=== PATIENT | female | born 1985 | race Caucasian/White ===

== ENCOUNTER 2021-07-24 07:01 | Observation (INO) | payer OTHER ==
[2021-07-24] VITALS (7 sets, daily range): BP systolic 97–128; BP diastolic 57–69
[~2021-07-24] VITALS: Ht 177.8 cm; Wt 104.0 kg
[~2021-07-24 07:01] MED LIST: CART1TAB4 PO; CHOL5000 PO; CYCL1DRO OP; HYDROmorphone 2 MG/ML VIAL IVP PRN; LACT1CAP6 PO; MULT-246 PO; PROCHLORPERAZINE 10 MG/2 ML VIAL. IVP PRN; TRAZ-118 PO; VENL150C PO; fentaNYL PF VIAL 100 MCG/2 ML VIAL IVP PRN
[2021-07-24] MEDS: IV RINGERS,LACTATED 1000ML 1,000 ML IV SCH ×2 (07:46→10:29)
[2021-07-24] MEDS ORDERED: SCOPOLAMINE 1.5MG PATCH. TD ONE (08:00)
[2021-07-24] MEDS ORDERED: MIDAZOLAM HCL/PF 2 MG/2 ML VIAL. ONE (08:13)
[2021-07-24] MEDS ORDERED: fentaNYL PF VIAL 250 MCG/5 ML VIAL ONE (08:13)
[2021-07-24] MEDS ORDERED: ONDANSETRON PF 4 MG/2 ML VIAL. ONE (08:14)
[2021-07-24] MEDS ORDERED: ROCURONIUM 50 MG/5 ML VIAL. ONE (08:14)
[2021-07-24] MEDS ORDERED: PROPOFOL 10 MG/ML (20ML) VIAL. IV ONE (08:14)
[2021-07-24] MEDS ORDERED: LIDOCAINE 2% PF 5 ML VIAL. ONE (08:14)
[2021-07-24 08:30] LABS: BASO % 1 % (0-3); EOS % 1 % (0-3); HEMATOCRIT 39.4 % (36.0-47.0); LYMPH # 2.3 x10^3/uL (1.0-4.8); LYMPH % 39 % (24-48); MEAN CORPUSCULAR HEMOGLOBIN 27 pg (25-35); MEAN CORPUSCULAR HGB CONC 33 g/dL (31-37); MEAN CORPUSCULAR VOLUME 83 fL (79-100); MONO # 0.5 x10^3/uL (0.0-1.1); MONO % 9 % (0-9); NEUT # 2.9 x10^3/uL (1.8-7.7); NEUT % 51 % (31-73); PLATELET COUNT 182 x10^3/uL (140-400); RED BLOOD COUNT 4.77 x10^6/uL (3.50-5.40); RED CELL DISTRIBUTION WIDTH 14.3 % (11.5-14.5); WHITE BLOOD COUNT 5.8 x10^3/uL (4.0-11.0)
[2021-07-24] MEDS ORDERED: LIDOCAINE 1%/EPI 1:100,000 20 ML VIAL. ONE (08:36)
[2021-07-24] MEDS ORDERED: INDIGOTINDISULFONATE SODIUM 40 MG/5 ML AMPUL. ONE (08:36)
[2021-07-24] MEDS ORDERED: PROPOFOL 200 ML IV ONE (08:37)
[2021-07-24] MEDS ORDERED: ePHEDrine PF IN SALINE 50 MG/10 ML SYRINGE. IV ONE (09:36)
[2021-07-24] MEDS ORDERED: GLYCOPYRROLATE 1 MG/5 ML VIAL. ONE (09:43)
[2021-07-24] MEDS ORDERED: NEOSTIGMINE METHYLSULFATE 5 MG/5 ML SYRINGE. ONE (09:43)
--- NOTE | 2021-07-24 09:58 | PDOC ---
BRIEF OPERATIVE NOTE Date: Jul 24, 2021 Pre-Op Diagnosis 1. Menorrhagia 2. Dysmenorrhea Post-Op Diagnosis Same Procedure Performed [facility] Surgeon Dr. Cooper Differential Specialist Elevated Guard: Krystian Anesthesia Type: General Blood Loss 70 ml Specimens Obtained cervix and uterus Findings enlarged uterus, nml ovaries tran. Complications none Operative Note see dictation ROSMERY COOPER Jr, MD Jul 24, 2021 09:58
[2021-07-24] MEDS ORDERED: PROCHLORPERAZINE 10 MG/2 ML VIAL. IV PRN (10:00)
[2021-07-24] MEDS ORDERED: ZOLPIDEM 5 MG TABLET. PO PRN (10:00)
[2021-07-24] MEDS ORDERED: CALCIUM CARBONATE 500 MG TAB.CHEW PO PRN (10:00)
[2021-07-24] MEDS ORDERED: diphenhydrAMINE HCL 25 MG CAPSULE PO PRN (10:00)
[2021-07-24] MEDS ORDERED: DEXTROSE 50% 25 GM / 50ML DISP.SYRIN. IV PRN (10:00)
[2021-07-24] MEDS ORDERED: SIMETHICONE 80 MG TAB.CHEW PO PRN (10:00)
[2021-07-24] MEDS ORDERED: ONDANSETRON PF 4 MG/2 ML VIAL. IV PRN (10:00)
[2021-07-24] MEDS ORDERED: 0.9 % SODIUM CHLORIDE 10 ML DISP.SYRIN. IV PRN (10:00)
[2021-07-24] MEDS ORDERED: diphenhydrAMINE 50 MG/ML VIAL IV PRN (10:00)
[2021-07-24] MEDS ORDERED: DOCU-109 PO (10:04)
[2021-07-24] MEDS ORDERED: GABA300C18 PO (10:04)
[2021-07-24] MEDS ORDERED: IBUP-1027 PO (10:04)
--- NOTE | 2021-07-24 10:05 | DISCH ---
DISCHARGE INSTRUCTIONS Condition on Discharge Condition on Discharge: Stable Activity After Discharge Activity Instructions for Disc: Activity as tolerated Lifting Instructions after Dis: No heavy lifting Driving Instructions after Dis: No driving for 2 weeks Diet after Discharge Diet after Discharge: Regular Contacting the DRAisha after DC Call your doctor for: Concerns you may have Follow-Up Follow up with: Dr. Lewis in 2 wks ROSMERY LEWIS Jr, MD Jul 24, 2021 10:05
[2021-07-24] MEDS ORDERED: PROCHLORPERAZINE 10 MG/2 ML VIAL. ONE (10:13)
[2021-07-24] MEDS ORDERED: fentaNYL PF VIAL 100 MCG/2 ML VIAL ONE (10:16)
[2021-07-24] MEDS ORDERED: MORPHINE SULFATE 2 MG/ML INJ. ONE ×2 (10:17→11:08)
[2021-07-24] MEDS: fentaNYL PF VIAL 100 MCG/2 ML VIAL IVP PRN ×2 (10:30→10:39)
[2021-07-24] MEDS: MORPHINE SULFATE 2 MG/ML INJ. IVP PRN ×4 (10:31→11:12)
[2021-07-24] MEDS: KETOROLAC 30 MG/ML VIAL. IV PRN ×3 (10:41→23:33)
--- NOTE | 2021-07-24 11:01 | OP ---
DATE OF SURGERY: 07/24/2021 PREOPERATIVE DIAGNOSES: 1. Menorrhagia. 2. Dysmenorrhea. POSTOPERATIVE DIAGNOSES: 1. Menorrhagia. 2. Dysmenorrhea. PROCEDURE: [facility]. SURGEON: Donal Cooper MD WEB MERCHANDISER: Krystian. ANESTHESIA: GETA. ESTIMATED BLOOD LOSS: 70 mL. COMPLICATIONS: None. FINDINGS: Enlarged uterus, normal ovaries bilaterally. SUMMARY: A 35-year-old with long history of menorrhagia and dysmenorrhea, requiring hysterectomy. She was counseled on the risks, benefits and expectations and voiced a clear understanding to proceed. DESCRIPTION OF PROCEDURE: The patient was taken to surgery suite and placed in dorsal lithotomy position. She was prepped with Dial soap due to the IODINE ALLERGY and draped in sterile fashion. After adequate anesthesia, weighted speculum and curved Lucy were placed vaginally. Anterior lip and posterior lip were grasped with Kush clamps. A 1% lidocaine with epinephrine was injected in a circumferential manner. Bovie cautery was utilized to circumscribe the cervix. The vaginal mucosa was dissected away from the lower uterine segment using blunt dissection. The parametrial tissue was clamped bilaterally with curved Tristan clamps, cut and suture ligated with 2-0 Vicryl suture. Posterior cul-de-sac was entered sharply with curved Gayle scissors. Long weighted speculum was placed. Uterosacral ligaments were clamped bilaterally, cut, and suture ligated. Cardinal ligaments were clamped bilaterally, cut and suture ligated. Uterus was then retroverted. A wedge section was removed from the uterus using a long-blade scalpel. The left uteroovarian pedicle was then clamped, cut, and suture ligated. Similarly, the right adnexa was done in a similar fashion. Cervix and uterus were then removed. The ovaries were visualized. The fallopian tubes did not appear to be present on either side. Ovaries appeared normal bilaterally. The pedicles were all hemostatic. A modified Barron's culdoplasty was performed incorporating the uterosacral ligaments bilaterally. The remainder of the vaginal cuff was reapproximated using 2-0 Vicryl suture in [id number] manner. Moist vaginal packing was placed. Gonsalez catheter was placed, which elicited a clear yellow urine. The patient tolerated the procedure well and was taken to recovery room in stable condition. Sponge and needle count correct x 3. DGP/AJK/ALICE DR: Doni TID: [id number]
[2021-07-24] MEDS: GABAPENTIN 300 MG CAPSULE. PO SCH ×2 (15:40→22:04)
[2021-07-24] MEDS ORDERED: OPIUM/BELLADONNA 30/16.2MG SUPP.RECT. PR PRN (16:00)
[2021-07-25] MEDS: GABAPENTIN 300 MG CAPSULE. PO SCH (05:53)
[2021-07-25] MEDS: KETOROLAC 30 MG/ML VIAL. IV PRN (05:57)
[2021-07-25 05:58] VITALS: BP 118/41
[2021-07-25 07:41] LABS: BASO % 0 % (0-3); EOS % 0 % (0-3); HEMATOCRIT 35.5 % (36.0-47.0); HEMOGLOBIN 11.6 g/dL (12.0-15.5); LYMPH % 16 % (24-48); MEAN CORPUSCULAR HEMOGLOBIN 27 pg (25-35); MEAN CORPUSCULAR HGB CONC 33 g/dL (31-37); MEAN CORPUSCULAR VOLUME 83 fL (79-100); MONO # 0.8 x10^3/uL (0.0-1.1); MONO % 7 % (0-9); NEUT # 9.4 x10^3/uL (1.8-7.7); NEUT % 77 % (31-73); PLATELET COUNT 187 x10^3/uL (140-400); RED BLOOD COUNT 4.27 x10^6/uL (3.50-5.40); WHITE BLOOD COUNT 12.3 x10^3/uL (4.0-11.0)
[2021-07-25] MEDS ORDERED: IBUPROFEN 400 MG TABLET. PO PRN (10:00)
[2021-07-25 10:18] VITALS: BP 114/58
[2021-07-25] MEDS ORDERED: FLU VACC QUAD 21-22 (6MOS+) PF 0.5 ML SYRINGE. VAX IM ONE (10:30)
[2021-07-25 12:50] VITALS: BP 114/54
--- NOTE | 2021-07-25 14:25 | NUR ---
Discharge Note: BRENNAN TORRES Discharge instructions and discharge home medications reviewed with Patient and a copy given. All questions have been answered and understanding verbalized. The following instructions and handouts were given: Hysterectomy, Care After, Tuyp-yk-Qmge Docusate Gabapentin Ibuprofen Patient discharged to home with self-care via ambulation to private vehicle.
--- NOTE | 2021-07-28 18:06 | PATHOLOGY ---
[facility] Accession Number: [id number] . 01 Material submitted: . uterus - CERVIX AND UTERUS . 01 Clinical history: . MENORRHAGIA, DYSMENORRHEA TRANS VAG HYSTERECTOMY . 02 Diagnosis: Uterus, transvaginal hysterectomy: - Adenomyosis, uterine corpus, subbasal, focal, with mild myometrial hypertrophy (uterine weight 135 gm). - Mild papillary chronic endocervicitis. - Proliferative endometrium. (JPM:[facility]; 07/28/2021) [facility] 07/28/2021 1728 Local . 02 Comment: There is no atypia or evidence of malignancy. (JPM:[facility]; 07/28/2021) . 02 Electronically signed: . Shahriar Lenz MD, Pathologist NPI- [id number] . 01 Gross description: . The specimen is received in formalin, labeled "Rebeca Huntley, cervix and uterus". Received is a uterus with attached cervix, received with the fundus previously detached, measuring 10.5 x 7.5 x 4.8 cm upon reconstruction, and having an aggregate weight of 135 g. The serosal surface is pink-huaser and smooth in appearance. The 0.8 cm cervical os is surrounded by pink-hauser, smooth ectocervical mucosa. The specimen is oriented using the reflection and the anterior paracervical area is inked black. The specimen is opened laterally to reveal a pale hauser, slightly corrugated endocervical canal measuring 3.0 cm in length. The endometrial cavity is triangular measuring 5.2 cm in length by 3.0 cm in width. The endometrium is pink-hauser to slightly hemorrhagic in appearance and measures 0.1 cm in thickness. Serial sectioning reveals a hauser-pink, trabeculated myometrium measuring up to 2.2 cm in thickness with no grossly distinct nodules or lesions. The specimen is submitted representatively as follows: . A1 12:00 cervix A2 6:00 cervix A3 anterior endomyometrium A4 posterior endomyometrium. ([facility]; 07/25/2021) QA/QA 07/28/2021 1624 Local . 02 Pathologist provided ICD-10: N80.0, N72 . 02 CPT . 356829 Specimen Comment: A courtesy copy of this report has been sent to [phone], [phone] Specimen Comment: [id number] Specimen Comment: Report sent to / DR CANCHOLA Specimen Comment: A duplicate report has been generated due to demographic updates. Performed at: 01 [facility] [address] [facility] [address], [place] [id number] MD Harris Patterson MD Phone: [phone] Performed at: 02 [facility] [address] [place], [place] [id number] MD Shahriar Lenz MD Phone: [phone]
== END 2021-07-25 13:00 | disposition home or self-care (01) ==
LOC: SURG 07:01 → 3 NORTH 09:58
PROVIDERS: ADMIT Obstetrics & Gynecology; ATTEND Obstetrics & Gynecology
DX: N92.0 Excessive and frequent menstruation with regular cycle (principal); N94.6 Dysmenorrhea, unspecified; N85.2 Hypertrophy of uterus; Z91.041 Radiographic dye allergy status; Z23 Encounter for immunization
CPT/HCPCS: 36415; 58260; 81025; 85025; 86850; 86900; 86901; 88307; 90471; 90686; 96374; 96376; A4314; A4344; A4930; G0378; G0379; J0690; J0780; J1885; J2250; J2270; J2405; J2704; J2710; J3010; J3490

== ENCOUNTER → 2021-08-08 | Outpatient (CLI) | payer OTHER ==
[2021-07-25 12:50] VITALS: BP 114/54
[~2021-08-08] MED LIST changes: +DOCU-109 PO; +GABA300C18 PO; -HYDROmorphone 2 MG/ML VIAL IVP PRN; +IBUP-1027 PO; -PROCHLORPERAZINE 10 MG/2 ML VIAL. IVP PRN; -fentaNYL PF VIAL 100 MCG/2 ML VIAL IVP PRN
--- NOTE | 2021-08-08 15:30 | KCIC ---
MR CERVICAL SPINE WO DATE: 08/08/2021 12:35 PM INDICATION: CERVICOGENIC HEADACHE/NECK PAIN, RADICUOLPATHY, CHRONIC LOW BACK PAIN. Chronic neck pain and marie's. Tightness in trapezius. TECHNIQUE: Multiplanar multisequence magnetic resonance imaging of the cervical spine was performed w ithout administration of intravenous contrast using the standard cervical spine protocol. COMPARISON: None. FINDINGS: The cervical spine is normally aligned. No acute fracture. Mild multilevel degenerative disc desicca tion and disc height loss. Bone marrow signal intensity is normal. The spinal cord is normal in signal intensity. On the limited views of the cranial cavity and brain, the cerebellum and keegan have normal morphology and signal characteristics. No Chiari malformation. No soft tissue abnormality. Normal signal voids are present in the vertebral arteries. No significant spinal canal stenosis or neural foraminal narrowing. IMPRESSION: Mild cervical spondylosis. No significant spinal canal stenosis or neural foraminal narrowing.. Electronically signed by: Gabriele Nguyễn MD (08/08/2021 3:28 PM) [id number]
--- NOTE | 2021-08-08 15:31 | KCIC ---
MR LUMBAR SPINE WO -[id number] Date: 08/08/2021 12:35 PM Indication: CHRONIC LOW BACK PAIN. Chronic lower back pain with newer left sciatica. Comparison: Lumbar spine radiograph 07/17/2021. Technique: Multi-planar multi-weighted magnetic resonance imaging of the lumbar spine was performed w ithout intravenous contrast using the standard lumbar spine protocol. FINDINGS: The lumbar spine is normally aligned. No acute fracture. Degenerative disc desiccation at L4-5. Bone marrow signal intensity is normal. The conus terminates at a normal level. No abnormal signal is seen within the visualized distal spina l cord. No clumping of intrathecal nerve roots. No soft tissue abnormality in the visualized abdomen or pelvis. T12-L1: No disc bulge. No facet arthropathy. No significant spinal stenosis or neural foraminal narro wing. L1-L2: No disc bulge. No facet arthropathy. No significant spinal stenosis or neural foraminal narrow ing. L2-L3: No disc bulge. Mild facet arthropathy. No significant spinal stenosis or neural foraminal narr owing. L3-L4: No disc bulge. Mild facet arthropathy. No significant spinal stenosis or neural foraminal narr owing. L4-L5: Disc bulge with annular tear. Mild facet arthropathy. Mild spinal stenosis. No neural foramina l narrowing. L5-S1: Disc bulge. Moderate facet arthropathy. No significant spinal stenosis or neural foraminal giacomo rowing. IMPRESSION: Mild lumbar spondylosis, worst at L4-5 as detailed above. Electronically signed by: Gabriele Nguyễn MD (08/08/2021 3:28 PM) [id number]
== END ==
LOC: KCIC MRI 12:29
PROVIDERS: ATTEND Family Medicine
DX: M47.22 Other spondylosis with radiculopathy, cervical region (principal); M47.816 Spondylosis without myelopathy or radiculopathy, lumbar region; M51.27 Other intervertebral disc displacement, lumbosacral region; M48.8X7 Other specified spondylopathies, lumbosacral region; M48.061 Spinal stenosis, lumbar region without neurogenic claudication; G44.86 Cervicogenic headache; M54.2 Cervicalgia
CPT/HCPCS: 72141; 72148

== ENCOUNTER → 2021-09-19 | Outpatient (CLI) | payer OTHER ==
[~2021-09-19] MED LIST changes: +BUPIVACAINE MPF 0.5% 30 ML VIAL. ONE; +IOHEXOL 180 MG/ML 10 ML VIAL. ONE; +VORT5TAB PO
--- NOTE | 2021-09-19 09:38 | PDOC1 ---
INITIAL PAIN CONSULT DATE OF SERVICE: DOS: DATE: 09/19/21 TIME: 09:31 CHIEF COMPLAINT: Chief Complaint: Bilateral low back pain HISTORY OF PRESENT ILLNESS: 36-year-old female presents history of pain for about 11 months in the low back not the result of any specific injury or accident that she is aware but getting worse with time right and left equal essentially with some radiation into the posterior gluteus and thighs but very infrequently worse on the left side patient reports no loss of motor function but some fatigability of both lower extremities is exacerbated with sitting for prolonged periods standing walking changing positions getting up from a seated position patient reports wakes her from sleep about 3-5 times a night does not affect her bowel bladder control but does affect her ability to walk patient reports has had physical therapy also chiropractic treatment and is doing exercise currently yoga as well without any significant long-lasting effects and improvement patient reports is very temporarily improved after physical therapy which helped more for upper back and neck that her low back patient rates her disability rating 0-10 10 being worst is a 7 with family home responsibilities sexual behavior 6 with recreation and occupation 3 with social activity to with self-care and 6 with life support activities specially sleeping. Patient has been taking Aleve which is not been helping significantly has not tried any other analgesics at this time. Patient reports significant pain with extension and straightening her back as well as right and left lateral rotation bilaterally. Patient did have MRI scan lumbar spine showing some mild lumbar spondylosis most significant at L45 with mild facet arthropathy throughout as well. Cervical MRI scan showed no significant abnormalities or findings. PAST MEDICAL HISTORY: PMH: Arthritis, scoliosis PREVIOUS SURGERIES: Past Surgical Hx: Hysterectomy, left knee scope, cholecystectomy, breast biopsy, foot surgery CURRENT MEDICATIONS: Current Meds: Active Scripts Medications Dose Route/Sig Max Daily Dose Days Date Category Dose Instructions Trintellix (Vortioxetine) 5 Mg Tablet 1 Tab PO DAILY 30 09/19/21 Reported Gabapentin 300 Mg Capsule 600 Mg PO Q8HRS 30 07/24/21 Rx Restasis (Cyclosporine) 1 Each Droperette 1 Each OP PRN PRN 07/23/21 Reported Probiotic (Lactobacillus Acidophilus) 1 Each Capsule 1 Each PO DAILY 07/23/21 Reported Multi-Vitamin Daily (Multivitamin) 1 Each Tablet 1 Each PO DAILY 07/23/21 Reported Vitamin D3 (Vitamin D) 125 Mcg Capsule 5,000 Mcg PO DAILY 07/23/21 Reported 5,000 UNITS = 125 MCG Move Free Ultra Tablet (Cartilage/Collagen/Bor/Hyalur) 1 Each Tablet 1 Each PO DAILY 07/23/21 Reported Trazodone Hcl 50 Mg Tablet 50 Mg PO HS 07/23/21 Reported ALLERGIES; Allergies: Coded Allergies: adhesive (Verified Allergy, Intermediate, steri strips-skin breakdown, 07/25/21) fluticasone (Verified Allergy, Intermediate, Rash, 07/21/21) latex (Verified Allergy, Intermediate, ITCHING, RASH, 07/21/21) Iodinated Contrast Media (Verified Allergy, Mild, IV CONTRAST- NAUSEA/VOMITING, 07/21/21) hydrocodone (Verified Allergy, Mild, Nausea and Vomiting, 07/21/21) FAMILY HISTORY: Family Hx: Arthritis, diabetes, hypertension SOCIAL HISTORY: Social Hx: Patient is nondrug alcohol does not smoke, does not use any illegal illicit or recreational drugs is lives with her spouse and has 2 children living at home lives in [facility] patient works as a registered nurse surgical department in [employer] REVIEW OF SYSTEMS: ROS: Positive for those items mentioned in history of present illness, all systems are reviewed, otherwise negative ,and are complete full and well-documented on patient's chart. PHYSICAL EXAM: VS: Blood pressure 119/75 pulse 87 respirations are 16 temperature is 90.0 F height is 5 foot 10 inches weight is 264 pounds PE: PHYSICAL EXAMINATION: GENERAL: The patient is awake, alert, oriented, appropriate, very pleasant in de meanor HEENT: Shows normocephalic, atraumatic. Extraocular movements are intact and symmetrical. Oral cavity: Mucous membranes moist and pink. Dentition is intact. NECK: Shows anterior throat supple without palpable lymphadenopathy noted. Swallow reflex symmetrical. CHEST: Shows normal on inspection. Breath sounds are clear bilaterally, distant but no rales rhonchi or wheezes. HEART: Shows S1, S2 clear. No murmurs auscultated. ABDOMEN: Soft, nontender, nondistended, obese. No palpable organomegaly is noted. BACK: Shows spine grossly in the midline. Normal-appearing cervical lordotic curvature. There is slightly increased thoracic kyphosis, some minor flattening of the lumbar lordotic curvature. Lumbar paraspinous muscles show symmetrical on inspection, on palpation shows some moderate tenderness diffusely throughout the upper, middle and lower distribution of the paraspinous muscles bilaterally and also into the lower thoracic paraspinous musculature, firm and tender, but without specific trigger points, without radiation of pain. The patient has good rotational motion of the lumbar spine, both laterally as well as extension and flexion with moderate tenderness with right and left lateral rotation past 10 degrees significant tenderness with extension past 10 degrees and axial loading of the lumbar spine, decreased with forward flexion at 45 degrees. No tenderness over the spinous processes, sacrum or sacroiliac regions. EXTREMITIES: Lower extremities show deep tendon reflexes 2+ in the patellar and tendo calcaneus tendons. Motor exam is 5 on a scale of 5 with right dorsiflexion, extension, quadriceps and hamstring flexion and 5/5 on the left. Peripheral pulses are 1+ posterior tibial. No peripheral edema is noted bilaterally. Lower extremities are warm and dry to touch, equal in color and appearance. The patient is able to stand, stand on her toes that significant difficulty loss of balance, walks with a normal-appearing gait does not appear to favor the right or left lower extremity does not use any assistive devices to ambulate. SKIN: Shows warm and dry, good turgor. No edema. No sores, rashes or bruising throughout. IMPRESSION: Impression: 36-year-old female with 11-month history of low back pain consistent with facet generated low back pain. MRI scan lumbar spine as noted Arthritis Plan: Options discussed with the patient could exert medical management physical therapies interventional techniques. Patient would like to pursue interventional techniques. We discussed bilateral lumbar facet medial branch blocks with fluoroscopic guidance using description as well as anatomical models to describe the procedure. Risks were discussed including but not limited to: Bleeding, infection, possibility of epidural hematoma and subsequent neurological compromise, dural puncture, headaches, spinal cord and/or nerve damage, side effects of steroid medication, and poor results regarding pain control. Patient understands and wished to proceed. Patient will return to clinic in approximately 3 weeks for follow-up, was counseled as to return appointment, activity level, and side effect to be aware of. Under sterile prep and drape using C-arm fluoroscopic guidance AP and lateral and oblique views, bilateral L4-5 and L5-S1 facet joint MB's injections were performed, using quinke needles with stylette's x4,, medications injected: 4 cc 0.5% bupivacaine +2 cc contrast. Condition at discharge stable patient tolerated the procedure well and no complications. KATTY KAY MD Sep 19, 2021 09:38
--- NOTE | 2021-09-19 09:38 | PDOC4 ---
Procedure Note: ICD 10 Code: ICD 10 Code: M4 7.816 M4 7.817 Procedure Note: Patient was consented for bilateral lumbar L4-5 and L5-S1 medial branch facet blocks with fluoroscopic guidance. Risks were discussed including but not limited to: Bleeding, infection, possibility of epidural hematoma and subsequent neurological compromise, dural puncture, headaches, spinal cord and/or nerve damage, side effects of steroid medication, and poor results regarding pain control. Patient understands and wished to proceed. Under sterile prep and drape using C-arm fluoroscopic guidance AP and lateral and oblique views, bilateral L4-5 and L5-S1 facet joint MB's injections were performed, using quinke needles with stylette's x4,, medications injected: 4 cc 0.5% bupivacaine +2 cc contrast. Condition at discharge stable patient tolerat ed the procedure well and no complications. KATTY KAY MD Sep 19, 2021 09:38
== END | disposition home or self-care (01) ==
LOC: PNCL 08:02
PROVIDERS: ATTEND Anesthesiology
DX: M47.816 Spondylosis without myelopathy or radiculopathy, lumbar region (principal); M47.817 Spondylosis without myelopathy or radiculopathy, lumbosacral region; M19.90 Unspecified osteoarthritis, unspecified site; F41.9 Anxiety disorder, unspecified; Z90.49 Acquired absence of other specified parts of digestive tract; Z98.890 Other specified postprocedural states; Z90.710 Acquired absence of both cervix and uterus; Z82.49 Family history of ischemic heart disease and other diseases of the circulatory system; Z83.3 Family history of diabetes mellitus; Z91.040 Latex allergy status; Z91.041 Radiographic dye allergy status; Z88.8 Allergy status to other drugs, medicaments and biological substances
CPT/HCPCS: 64493; 64494; J3490; Q9965

== ENCOUNTER → 2021-10-24 | Outpatient (CLI) | payer OTHER ==
[~2021-10-24] MED LIST changes: +BUPIVACAINE MPF 0.25% 10 ML VIAL. ONE
--- NOTE | 2021-10-24 12:47 | PDOC ---
Progress Note - Pain Clinic Date of Service: DOS: DATE: 10/24/21 TIME: 12:42 Diagnosis: Dx: Bilateral lumbar and lumbosacral spondylosis History or Present Illness: HPI: 36-year-old female returns for follow-up status post bilateral L4-5 and L5-S1 medial branch facet blocks patient reports 60% improvement lasting for couple hours after the procedure as we had only used local anesthetic without steroid as patient has a significant adverse reaction to steroid that she has been exposed to in the past. Patient reports her pain is a 9 on scale 10 is worst 7 on average 5 its least is a 7 today patient scribes as sharp and tight in the low back itself with a burning sensation which can be severe but not radiating to the lower extremities, worse on the right side now than the left when previously it was equal. Patient also has new pain of pain the base the neck and shoulders which is becoming more noticeable in the upper back and upper shoulders as well as the neck which seems to be worse with working repetitive motions reading or with forward flexion, such as with reading or using a computer on her lap. Patient reports no radiation to the upper extremities further than the shoulders. Patient reports it occasionally awakens her from sleep in the back is been waking her from sleep again about every 2-3 hours. Patient is been taking gabapentin at night which does decrease the pain but only occasionally does not always get better sleep from that. Patient reports no loss of motor function no bowel or bladder incontinence. Physical Exam: VS: Blood pressure is 123/79 pulse 94 respirations 16 temperature 98.1 F height is 5 foot 10 inches weight is 265 pounds PE: PHYSICAL EXAMINATION: GENERAL: The patient is awake, alert, oriented, appropriate, very pleasant in demeanor HEENT: Shows normocephalic, atraumatic. Extraocular movements are intact and symmetrical. Oral cavity: Mucous membranes moist and pink. Dentition is intact. NECK: Shows anterior throat supple without palpable lymphadenopathy noted. Swallow reflex symmetrical. CHEST: Shows normal on inspection. Breath sounds are clear bilaterally. HEART: Shows S1, S2 clear. No murmurs auscultated. ABDOMEN: Soft, nontender, nondistended. BACK: Shows spine grossly in the midline. Normal-appearing cervical lordotic curvature. There is slightly increased thoracic kyphosis, some minor flattening of the lumbar lordotic curvature. Lumbar paraspinous muscles show symmetrical on inspection, on palpation shows some moderate tenderness diffusely throughout the upper, middle and lower distribution of the paraspinous muscles, but without specific trigger points, without radiation of pain. The patient has good rotational motion of the lumbar spine, both laterally as well as extension and f lexion with significant tenderness with extension and with right and left lateral rotation especially to the right greater than the left but with forward flexion performed at 45 degrees without significant increase in pain. EXTREMITIES: Lower extremities show deep tendon reflexes 2+ in the patellar and tendo calcaneus tendons. Motor exam is 5 on a scale of 5 with right dorsiflexio n, extension, quadriceps and hamstring flexion and 5/5 on the left. Peripheral pulses are 1+ posterior tibial. No peripheral edema is noted bilaterally. Lower extremities are warm and dry to touch, equal in color and appearance. Upper extremities show deep tendon reflexes 2+ in the bicep triceps tendons, motor exam is strong with head soft sugar operator strength rated 5 out of 5 as is bicep and tricep flexion. SKIN: Shows warm and dry, good turgor. No edema. No sores, rashes or bruising throughout. Procedure: Procedure: Options were discussed with the patient. Patient will chart reviews her current medication regimen updated current review of systems updated today as well. We will proceed with bilateral L4-5 and L5-S1 facet medial branch blocks today with fluoroscopic guidance. Risks were discussed including but not limited to: Bleeding, infection, possibility of epidural hematoma and subsequent neurological compromise, dural puncture, headaches, spinal cord and/or nerve damage, side effects of steroid medication, and poor results regarding pain control. Patient understands and wished to proceed. Patient will return to clinic in approximate 2 weeks for follow-up, was counseled as return appointment, activity level, and side effect to be aware of. Medication Injected: Med Injected: Under sterile prep and drape using C-arm fluoroscopic guidance AP and lateral and oblique views, bilateral L4-5 and L5-S1 facet joint MB's injections were performed, using quinke needles with stylette's x4,, medications injected: 120 mg Depo-Medrol +4 cc 0.25% bupivacaine +2 cc contrast. Condition at discharge stable patient tolerated the procedure well and no complications. Condition at Discharge: Condition at Discharge: Condition at discharge stable, patient tolerated the procedure well and had no complications. KATTY KAY MD Oct 24, 2021 12:47
--- NOTE | 2021-10-24 12:48 | PDOC4 ---
Procedure Note: ICD 10 Code: ICD 10 Code: M4 7.816 M4 7.817 Procedure Note: Patient was consented for bilateral L4-5 and L5-S1 facet medial branch blocks with fluoroscopic guidance. Risks were discussed including but not limited to: Bleeding, infection, possibility of epidural hematoma and subsequent neurological compromise, dural puncture, headaches, spinal cord and/or nerve damage, side effects of steroid medication, and poor results regarding pain control. Patient understands and wished to proceed. Under sterile prep and drape using C-arm fluoroscopic guidance AP and lateral and oblique views, bilateral L4-5 and L5-S1 facet joint MB's injections were performed, using quinke needles with stylette's x4,, medications injected: 120 mg Depo-Medrol +4 cc 0.25% bupivacaine +2 cc contrast. Condition at discharge stable patient tolerated the procedure well and no complications. KATTY KAY MD Oct 24, 2021 12:48
== END | disposition home or self-care (01) ==
LOC: PNCL 11:20
PROVIDERS: ATTEND Anesthesiology
DX: M47.817 Spondylosis without myelopathy or radiculopathy, lumbosacral region (principal); M47.816 Spondylosis without myelopathy or radiculopathy, lumbar region; F41.9 Anxiety disorder, unspecified; Z79.899 Other long term (current) drug therapy; Z90.49 Acquired absence of other specified parts of digestive tract; Z98.890 Other specified postprocedural states; Z91.041 Radiographic dye allergy status; Z91.040 Latex allergy status; Z88.8 Allergy status to other drugs, medicaments and biological substances
CPT/HCPCS: 64493; 64494; J3490; Q9965

== ENCOUNTER → 2021-11-06 | Outpatient (CLI) | payer OTHER ==
[~2021-11-06] MED LIST changes: -BUPIVACAINE MPF 0.25% 10 ML VIAL. ONE; -BUPIVACAINE MPF 0.5% 30 ML VIAL. ONE; -IOHEXOL 180 MG/ML 10 ML VIAL. ONE
--- NOTE | 2021-11-06 13:11 | PDOC ---
Progress Note - Pain Clinic Date of Service: DOS: DATE: 11/06/21 TIME: 13:07 Diagnosis: Dx: Lumbar and lumbosacral spondylosis History or Present Illness: HPI: Telemedicine visit today with patient identity verified with date of as well as full name, total time spent 11 minutes 36-year-old female status post bilateral L4-5 and L5-S1 facet medial branch blocks x2 with about 80% improvement for several days following the injection with only bupivacaine as a diagnostic block no corticosteroids used. Patient reports it lasted longer than the first block which was still significantly increasing the pain for 2 days patient reports now with several days later before the pain began to return is dull in the low back bilaterally without radiation to the lower extremities. Patient increase in activity for the several days at work as well as at home with much less use of [id number] analgesics as well. Patient reports is worse with walking standing changing positions sitting for prolonged periods greater than about 30 minutes and especially with extension of the lumbar spine when standing or walking. Patient reports is better with laying down but has been waking her from sleep about once or twice at night. Patient reports no motor or sensory deficits no bowel or bladder incontinence and again no radiation to the lower extremities. Patient reports her pain is a 9 on scale 10 at its worst is average of 5, and is a 5 today. Patient has had 2 consecutive medial branch blocks now with significant reduction in pain after diagnostic injections and would like to proceed to move on with radiofrequency ablation of the bilateral L4-5 and L5-S1 medial branch facet levels. We will wait for preauthorization with patient's insurance provider and once approved plan on radiofrequency ablation bilateral L4-5 and L5-S1 facet medial branches with fluoroscopic guidance. Physical Exam: PE: KATTY KAY MD Nov 06, 2021 13:11
== END | disposition home or self-care (01) ==
LOC: PNCL 10:02
PROVIDERS: ATTEND Anesthesiology
DX: M47.817 Spondylosis without myelopathy or radiculopathy, lumbosacral region (principal); M47.816 Spondylosis without myelopathy or radiculopathy, lumbar region; F41.9 Anxiety disorder, unspecified; Z90.49 Acquired absence of other specified parts of digestive tract; Z98.890 Other specified postprocedural states; Z79.899 Other long term (current) drug therapy; Z91.040 Latex allergy status; Z91.041 Radiographic dye allergy status; Z88.8 Allergy status to other drugs, medicaments and biological substances
CPT/HCPCS: 99212; G0463

== ENCOUNTER → 2021-11-14 | Outpatient (CLI) | payer OTHER ==
[~2021-11-14] MED LIST changes: +BUPIVACAINE MPF 0.25% 10 ML VIAL. ONE; +LIDOCAINE 2% PF 5 ML VIAL. ONE
--- NOTE | 2021-11-14 12:46 | PDOC ---
Progress Note - Pain Clinic Date of Service: DOS: DATE: 11/14/21 TIME: 12:42 Diagnosis: Dx: Bilateral lumbar and lumbosacral spondylosis History or Present Illness: HPI: 36-year-old female returns for follow-up status post lumbar facet medial branch blocks L4-5 and L5-S1 bilaterally with good results about 80% improvement with each diagnostic injection. Patient reports still significant pain returning though after several days in the low back more on the right side than left and present bilaterally patient reports a 9 on scale 10 is worst on the past week 8 on average 5 its least and is a 5 today patient reports aching sharp tight burning stabbing can be constant severe in the low back itself worse with walking standing changing positions getting up from a seated position also with prolonged sitting. Patient reports it wakes her from sleep about once or twice a night on most nights as well she can usually reposition and get back to sleep. Patient reports no bowel or bladder incontinence no motor or sensory deficits. Patient reports the pain is most noticeable with standing for prolonged periods but is also present with walking and as well with sitting. Patient reports no loss of motor function with significant fatigability of the lower extremities with the pain with walking. Physical Exam: VS: Blood pressure is 123/74 pulse 88 respirations 18 temperature 98.7 F height is 5 feet 10 inches weight is 265 pounds. PE: PHYSICAL EXAMINATION: GENERAL: The patient is awake, alert, oriented, appropriate, very pleasant in demeanor HEENT: Shows normocephalic, atraumatic. Extraocular movements are intact and symmetrical. Oral cavity: Mucous membranes moist and pink. Dentition is intact. NECK: Shows anterior throat supple without palpable lymphadenopathy noted. Swallow reflex symmetrical. CHEST: Shows normal on inspection. Breath sounds are clear bilaterally. HEART: Shows S1, S2 clear. No murmurs auscultated. ABDOMEN: Soft, nontender, nondistended. No palpable organomegaly is noted. BACK: Shows spine grossly in the midline. Normal-appearing cervical lordotic curvature. There is slightly increased thoracic kyphosis, some minor flattening of the lumbar lordotic curvature. Lumbar paraspinous muscles show symmetrical on inspection, on palpation shows some moderate tenderness diffusely throughout the upper, middle and lower distribution of the paraspinous muscles without specific trigger points, without radiation of pain. The patient has good rotational motion of the lumbar spine, both laterally as well as extension and flexion with significant tenderness with extension and axial loading lumbar spine also right and left lateral rotation greater than 10 degrees significantly tender each direction but without significant radiation. EXTREMITIES: Lower extremities show deep tendon reflexes 2+ in the patellar and tendo calcaneus tendons. Motor exam is 5 on a scale of 5 with right dorsiflexion, extension, quadriceps and hamstring flexion and 5/5 on the left. Peripheral pulses are 1+ posterior tibial. No peripheral edema is noted bilaterally. Lower extremities are warm and dry to touch, equal in color and appearance. SKIN: Shows warm and dry, good turgor. No edema. No sores, rashes or bruising throughout. Procedure: Procedure: Options discussed with patient. Patient's chart was viewed as her current medication regimen updated current review of systems updated today as well. We will proceed with the radiofrequency ablation bilateral L4-5 and L5-S1 medial branch facet nerves with fluoroscopic guidance. Risks were discussed including but not limited to: Bleeding, infection, possibility of epidural hematoma and subsequent neurological compromise, dural puncture, headaches, spinal cord and/or nerve damage, potential thermal damage to motor nerves as well as surrounding structures and permanent ischemic damage, and poor results regarding pain control. Patient understands and wished to proceed. Patient will return to clinic in approximate 3 weeks for follow-up, was counseled as to return appointment, activity level, and side effect to be aware of. Medication Injected: Med Injected: Under sterile prep and drape patient in prone position using C-arm fluoroscopic guidance patient's lumbar spine was visualized in both AP oblique and lateral views using 1% lidocaine to topically anesthetize the areas overlying the L3-4, L4-5 and L5-S1 facet joints at the point of the medial branches. Using a 22- gauge insulated radiofrequency needle with curved tips and stylette, the needles were advanced to contact the region of the facet with the medial branch targets. This was repeated at the L3-4 L4-5 and L5-S1 levels. Stylette was removed and using radiofrequency probe inserted into each needle individually at each level and then motor tested with no motor stimulation of the lower extremity. Patient did have some multifidus musculature contraction in the lumbar spine only but without radiation. At this time 1 cc of 2% lidocaine was then injected in each needle after motor testing but prior to radiofrequency ablation. Needle position was confirmed continuously throughout the radiofrequency ablation with both AP oblique and lateral views at each level. At this time radiofrequency ablation was carried out each level for 60 seconds at 80 C x 2 at each level with the tip of the needle turned 90 degrees after the first 60 seconds and then subsequent 60 seconds of radiofrequency ablation. Once radiofrequency ablation was completed solution containing 0.25% bupivacaine 1 cc and 20 mg Depo-Medrol was injected each level. Needle was then withdrawn. The procedure was repeated for the contralateral side as described as well. Patient had no paresthesias throughout the procedure no radiation of pain into the lower extremities no lower extremity motor response with motor testing bilaterally. Please see radiofrequency flowsheet for levels, temperatures, impedance, etc. Condition at Discharge: Condition at Discharge: Condition at discharge stable, paced tolerated the procedure well and had no complications. KATTY KAY MD Nov 14, 2021 12:46
== END | disposition home or self-care (01) ==
LOC: PNCL 10:37
PROVIDERS: ATTEND Anesthesiology
DX: M47.817 Spondylosis without myelopathy or radiculopathy, lumbosacral region (principal); M47.816 Spondylosis without myelopathy or radiculopathy, lumbar region; F41.9 Anxiety disorder, unspecified; Z90.49 Acquired absence of other specified parts of digestive tract; Z98.890 Other specified postprocedural states; Z79.899 Other long term (current) drug therapy; Z91.040 Latex allergy status; Z91.041 Radiographic dye allergy status; Z88.8 Allergy status to other drugs, medicaments and biological substances
CPT/HCPCS: 64635; 64636; J3490

== ENCOUNTER → 2021-12-10 | Outpatient (CLI) | payer OTHER ==
[~2021-12-10] MED LIST changes: -BUPIVACAINE MPF 0.25% 10 ML VIAL. ONE; -LIDOCAINE 2% PF 5 ML VIAL. ONE
--- NOTE | 2021-12-10 10:08 | PDOC ---
Progress Note - Pain Clinic Date of Service: DOS: DATE: 12/10/21 TIME: 10:02 Diagnosis: Dx: Lumbar and lumbosacral spondylosis History or Present Illness: HPI: 36-year-old female returns for follow-up status post lumbar facet medial branch blocks as well as radiofrequency ablation on November 14, 2021. Patient reports that she did well initially but the pain returned fairly quickly and is better i n the back and hips but much more painful in the right lower extremity and now is radiating into the right posterior gluteus and posterior thigh to the knee which is new for her patient reports she did not have significant traveling pain radiating pain in the leg until recently patient reports is a 9 on scale 10 is worse over the past week 7 on average 5 its least is a 7 today patient report is worse with walking standing change positions better with sitting or laying down but can awaken her from sleep about once every 4 hours patient reports it is sharp and tight in the back with radiating pain in the right leg posteriorly it was who comes constant with weightbearing and activity as well as just standing and can be severe at times as well. Patient reports normal function but significant fatigability of the right lower extremity at this time as well. We reviewed patient's MRI scan with her today showing annular tear with disc bulge at L45 and disc bulge at L5-S1 with some mild spinal stenosis at L4-5. Patient reports she is getting ready to change jobs at the end of the week and will have a different insurance provider at that time would like to wait on any further treatment until this is in place. We also discussed patient's adverse reaction to previous steroid injection in the past and will recommend formal skin testing with a chemical maker to determine what steroids may or may not cause allergic type reactions with the patient. Physical Exam: VS: Blood pressure is 142/74 pulse 76 respirations are 18 temperature is 98.4 F height is 5 feet 10 inches weight is 286 pounds. PE: PHYSICAL EXAMINATION: GENERAL: The patient is awake, alert, oriented, appropriate, very pleasant in demeanor HEENT: Shows normocephalic, atraumatic. Extraocular movements are intact and symmetrical. Oral cavity: Mucous membranes moist and pink. Dentition is intact. NECK: Shows anterior throat supple without palpable lymphadenopathy noted. Swallow reflex symmetrical. CHEST: Shows normal on inspection. Breath sounds are clear bilaterally. HEART: Shows S1, S2 clear. No murmurs auscultated. ABDOMEN: Soft, nontender, nondistended. No palpable organomegaly is noted. BACK: Shows spine grossly in the midline. Normal-appearing cervical lordotic curvature. There is slightly increased thoracic kyphosis, some mild flattening of the lumbar lordotic curvature. Lumbar paraspinous muscles show symmetrical on inspection, on palpation shows some moderate tenderness diffusely throughout the upper, middle and lower distribution of the paraspinous muscles without specific trigger points, without radiation of pain. The patient has good rotational motion of the lumbar spine, both laterally as well as extension and flexion with some mild tenderness with extension and axial loading lumbar spine but better with forward flexion no significant pain with right and left lateral rotation greater than 10 degrees on exam today. EXTREMITIES: Lower extremities show deep tendon reflexes 2+ in the patellar and tendo calcaneus tendons. Motor exam is 5 on a scale of 5 with right dorsiflexion, extension, quadriceps and hamstring flexion and 5/5 on the left. Peripheral pulses are 1+ posterior tibial. No peripheral edema is noted bilaterally. Lower extremities are warm and dry to touch, equal in color and appearance. Patient has mild positive straight leg raise at approximate 45 degrees on the right only, left side is negative. SKIN: Shows warm and dry, good turgor. No edema. No sores, rashes or bruising throughout. Procedure: Procedure: Options were discussed with the patient. Patient's old chart was reviewed as her current medication regimen updated current review of systems updated today as well. We will hold on further injections at this time. Recommend allergy testing with formal skin testing for various steroid preparations. We discussed possible further interventional techniques as she still has some significant pain and new pain radiating to the right lower extremity posteriorly in a radicular fashion. Patient is very hesitant to receive steroids and again recommend formal skin testing as mentioned. Medication Injected: Med Injected: None Condition at Discharge: Condition at Discharge: Condition at discharge is stable. KATTY KAY MD Dec 10, 2021 10:08
== END | disposition home or self-care (01) ==
LOC: PNCL 09:24
PROVIDERS: ATTEND Anesthesiology
DX: M47.816 Spondylosis without myelopathy or radiculopathy, lumbar region (principal); M47.817 Spondylosis without myelopathy or radiculopathy, lumbosacral region; F41.9 Anxiety disorder, unspecified; Z90.49 Acquired absence of other specified parts of digestive tract; Z98.890 Other specified postprocedural states; Z79.899 Other long term (current) drug therapy; Z91.041 Radiographic dye allergy status; Z91.040 Latex allergy status; Z88.8 Allergy status to other drugs, medicaments and biological substances
CPT/HCPCS: 99212; G0463